=== PATIENT | male | born 1990 | race Caucasian/White ===

== ENCOUNTER 2021-07-03 10:42 | Outpatient (REF) | payer OTHER, SELFPAY | END 2021-07-03 10:43 | disposition home or self-care (01) | LOC: HO.LAB 10:42 | PROVIDERS: PCP Internal Medicine; Visit Provider Internal Medicine | DX: Z20.822 Contact with and (suspected) exposure to COVID-19 (principal) | CPT/HCPCS: C9803; U0003; U0005 ==

== ENCOUNTER → 2023-04-10 10:35 | Outpatient (BNVA) | payer OTHER, SELFPAY | PROVIDERS: PCP Internal Medicine; Visit Provider Physician Assistant | DX: S92.355A Nondisplaced fracture of fifth metatarsal bone, left foot, initial encounter for closed fracture (principal); W20.8XXA Other cause of strike by thrown, projected or falling object, initial encounter | CPT/HCPCS: 99203 ==

== ENCOUNTER → 2023-04-17 13:12 | Outpatient (BNVA) | payer OTHER, SELFPAY | PROVIDERS: PCP Internal Medicine; Visit Provider Internal Medicine | DX: S92.355A Nondisplaced fracture of fifth metatarsal bone, left foot, initial encounter for closed fracture (principal); W20.8XXA Other cause of strike by thrown, projected or falling object, initial encounter | CPT/HCPCS: 99213 ==

== ENCOUNTER 2023-04-21 15:02 | Outpatient (AMB) | payer OTHER, SELFPAY ==
--- NOTE | 2023-04-21 15:06 | MHC.OFFVIS ---
Intake Vital Signs 04/21/23 15:11 Height 6 ft 2 in Weight 220 lb BMI 28.2 Intake Visit Reasons: fc- Fracture base of Left 5th metatarsal. Allergies No Known Allergies Allergy (Unverified 04/21/23 15:11) Medication List - Last Reconciled 04/21/23 by Jania Rivera PA-C No Known Home Meds HPI fc- Fracture base of Left 5th metatarsal. 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 He was seen at [facility] where he was placed in a post op shoe which provided him mild relief. He states he has pain in his left small toe and reports being currently out of work due to the pain. He was referred to our office for ortho eval. Review of Systems Const All systems reviewed & are unremarkable except as noted in HPI and below Physical Exam Vital Signs: BMI result Body Mass Index 28.2 Extrem Other: Left foot: Skin intact. There is some bruising of the lateral edge of the left foot. There is tenderness at the base of the 5th metatarsal. Sensation intact. EHL intact. No pain along the mediolateral malleolus. Neurovascularly intact. Office Procedures Fracture Care Fracture Billing Code: Fracture Billing Code Results Reviewed Results Reviewed: xrays of the left foot obtained at an outside facility show mildly displaced fracture at the base of the 5th metatarsal Assessment & Plan Assessment & Plan (1) Fracture of fifth metatarsal bone of left foot: Code(s): S92.352A - Displaced fracture of fifth metatarsal bone, left foot, initial encounter for closed fracture Plan He was given an off the shelf short boot weight bearing as tolerated. He can wear this with ambulation. He can remove the brace for hygiene and resting. I did explain that this could take up to 6-8 weeks for full recovery but he may continue to have some discomfort. Given the nature of the fracture and that he is weight bearing, he may benefit from physical therapy in the future. He will continue to remain out of work and I would like to see him back in 6 weeks with new x-rays, sooner if needed. Patient Instructions: Scribed for Jania Rivera PA-C, by Michael Johnston medical services coordinator, on 04/21/2023 at 3:15 PM Jania SEWELL PA-C, have personally reviewed and agree with the information entered by the scribe. Coding Level of Care Code New Pt Level 3 (17686) Diagnoses Fracture of fifth metatarsal bone of left foot S92.352A CPT Codes Fracture Care - Fracture Billing Code: Fracture Billing Code ([id number])
[2023-04-21 15:11] VITALS: BMI 28.2
== END 2023-04-21 16:27 | disposition home or self-care (01) ==
PROVIDERS: PCP Internal Medicine; Visit Provider Physician Assistant
DX: S92.352A Displaced fracture of fifth metatarsal bone, left foot, initial encounter for closed fracture (principal)
CPT/HCPCS: 99203

== ENCOUNTER → 2023-04-21 15:02 | Outpatient (BNVA) | payer OTHER, SELFPAY | PROVIDERS: PCP Internal Medicine; Visit Provider Physician Assistant | DX: S92.352A Displaced fracture of fifth metatarsal bone, left foot, initial encounter for closed fracture (principal) | CPT/HCPCS: 99202 ==

== ENCOUNTER 2023-06-05 12:52 | Outpatient (AMB) | payer OTHER, SELFPAY ==
--- NOTE | 2023-06-05 12:57 | A.OFFVIS_ITS ---
Intake Vital Signs 06/05/23 13:07 Height 6 ft 2 in Weight 220 lb BMI 28.2 Intake Visit Reasons: ov-Fracture base of Left 5th metatarsal. Intake Note: Allan villatoro 32 year old male presents today for a follow up of left 5th metatarsal fracture s/p work injury, DOI 04/10/23. Patient reports he is doing well. He feels an electrical shock with applying weight when boot is off. Allergies No Known Allergies Allergy (Unverified 06/05/23 13:07) HPI ov-Fracture base of Left 5th metatarsal. HPI Details 32-year-old male who returns to the [facility] today for a follow-up of left 5th metatarsal fracture s/p work injury, 04/10/23. He states he has an ?electrical shock? sensation with applying weight when not wearing the boot. He is doing well otherwise and has no concerns today. Review of Systems Const All systems reviewed & are unremarkable except as noted in HPI and below Physical Exam Vital Signs: BMI result Body Mass Index 28.2 Extrem Other: Left foot: Skin intact. There is mild tenderness at the base of the 5th metatarsal. Sensation intact. EHL intact. No pain along the mediolateral malleolus. Neurovascularly intact. Results Reviewed Results Reviewed: xrays of the left foot obtained at an outside facility show mildly displaced fracture at the base of the 5th metatarsal Assessment & Plan Assessment & Plan (1) Fracture of fifth metatarsal bone of left foot: Code(s): S92.352A - Displaced fracture of fifth metatarsal bone, left foot, initial encounter for closed fracture Qualifiers: Encounter type: subsequent encounter Fracture type: closed Fracture alignment: displaced Fracture healing: with routine healing Qualified Code(s): S92.352D - Displaced fracture of fifth metatarsal bone, left foot, subsequent encounter for fracture with routine healing Plan He is going to begin a course of physical therapy to work on ROM and gentle strengthening. He will transition out of the boot into a regular street shoe as tolerated and increase activity as tolerated. I would like to see him back in 6 weeks with new x-rays, sooner if needed. Orders: Orders PT Evaluation and Treatment Today S92.352A - Displaced fracture of fifth metatarsal bone, left foot, initial encounter for closed fracture XR foot LT min 3V Today M79.672 - Pain in left foot Patient Instructions: Scribed for Ta-Rosa Meuse, PA-C, by Michael Johnston medical lab scientist, on 06/05/2023 at 12:45 PM ELVIRA. Jania Pham PA-C, have personally reviewed and agree with the information entered by the scribe. Coding Level of Care Code Global (12793) Diagnoses Closed displaced fracture of fifth metatarsal bone of left foot with routine healing, subsequent encounter S92.352D Encounter type: subsequent encounter Fracture type: closed Fracture alignment: displaced Fracture healing: with routine healing
[2023-06-05 13:07] VITALS: BMI 28.2
== END 2023-06-05 13:19 | disposition home or self-care (01) ==
PROVIDERS: PCP Internal Medicine; Visit Provider Physician Assistant
DX: S92.352D Displaced fracture of fifth metatarsal bone, left foot, subsequent encounter for fracture with routine healing (principal); W20.8XXD Other cause of strike by thrown, projected or falling object, subsequent encounter; Y99.0 Civilian activity done for income or pay
CPT/HCPCS: 99213

== ENCOUNTER 2023-06-05 16:35 | Outpatient (REF) | payer OTHER, SELFPAY ==
--- NOTE | ~2023-06-05 | XR_ITS ---
EXAMINATION: XR FOOT, LEFT CLINICAL INFORMATION: Pain in left foot COMPARISON: 04/10/2023 TECHNIQUE: AP, lateral, and oblique views of the left foot. FINDINGS: Redemonstration of transverse mildly displaced fracture at the base of the fifth metatarsal. There is increased widening/distraction along the lateral aspect of the fracture. Joint spaces and alignment are preserved. XR/XR foot LT min 3V IMPRESSION: Transverse, mildly comminuted fracture at the base of the fifth metatarsal. There is increased widening/distraction along the lateral aspect of the fracture.
== END 2023-06-05 16:36 | disposition home or self-care (01) ==
LOC: HO.HOSX 16:35
PROVIDERS: Visit Provider Physician Assistant
DX: S92.352D Displaced fracture of fifth metatarsal bone, left foot, subsequent encounter for fracture with routine healing (principal); M79.672 Pain in left foot; X58.XXXD Exposure to other specified factors, subsequent encounter
CPT/HCPCS: 73630; 99212

== ENCOUNTER 2023-07-16 09:46 | Outpatient (AMB) | payer OTHER, SELFPAY ==
[2023-07-16 09:50] VITALS: BMI 28.2
--- NOTE | 2023-07-16 09:50 | A.OFFVIS_ITS ---
Intake Vital Signs 07/16/23 09:50 Height 6 ft 2 in Weight 220 lb BMI 28.2 Intake Visit Reasons: OV-left metatarsal fx w xays Intake Note: Allan a 32 year old male presents today for a follow up of left 5th metatarsal fracture s/p work injury, DOI 04/10/23. Xrays updated in office. Patient reports he was not able to attend PT. He continues to wear walking boot. He has mild pain with. Allergies No Known Allergies Allergy (Unverified 07/16/23 09:57) HPI OV-left metatarsal fx w xays HPI Details 32-year-old male who returns to the [facility] today for a follow-up of lef t 5th metatarsal fracture s/p work injury, 04/10/23. He states he has mild pain in his foot with ambulation. He was unable to attend physical therapy however he continues to wear his walking boot. [facility] (Updated 07/16/23 @ 09:58 by VISHAL Escamilla) Patient Tobacco Use Status: Never used Tobacco Current occupational status: employed Current occupation: [employer] Review of Systems Const All systems reviewed & are unremarkable except as noted in HPI and below Physical Exam Vital Signs: BMI result Body Mass Index 28.2 Extrem Other: Left foot: Normal to inspection. He has very minimal tenderness at the base of 5th metatarsal. No pain along the Achilles tendon or surrounding structures. He has good ROM, no instability. NVI. Results Reviewed Results Reviewed: Xrays were obtained in the office today and personally reviewed by me of the left foot show fracture at the base of the 5th metatarsal with routine healing. Assessment & Plan Assessment & Plan (1) Fracture of fifth metatarsal bone of left foot: Code(s): S92.352A - Displaced fracture of fifth metatarsal bone, left foot, initial encounter for closed fracture Qualifiers: Encounter type: subsequent encounter Fracture alignment: displaced Fracture healing: with routine healing Fracture type: closed Qualified Code(s): S92.352D - Displaced fracture of fifth metatarsal bone, left foot, subsequent encounter for fracture with routine healing Plan We had a lengthy disc about the bene of physical therapy. 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 I encouraged him to discontinue the use of boot and progress to normal street shoe and he can increase activity as tolerated including returning to work on August 11. I did explain that with increasing activities he may have periods of increased pain and swelling which is normal if it lasts for a few hours and is better with rest and anti-inflammatories. Anything that is worsening or limiting his activities significantly, he should contact the office, otherwise he will follow-up as needed. Orders: Orders XR foot LT min 3V Today M79.672 - Pain in left foot Patient Instructions: Scribed for Jania Rivera PA-C, by Michael Johnston claim review medical director, on 07/16/2023 at 9:45 AM Jania SEWELL PA-C, have personally reviewed and agree with the information entered by the scribe. Coding Level of Care Code Est Pt Level 3 (94988) Diagnoses Closed displaced fracture of fifth metatarsal bone of left foot with routine healing, subsequent encounter S92.352D Encounter type: subsequent encounter Fracture alignment: displaced Fracture healing: with routine healing Fracture type: closed
== END 2023-07-16 10:12 | disposition home or self-care (01) ==
PROVIDERS: PCP Internal Medicine; Visit Provider Physician Assistant
DX: S92.352D Displaced fracture of fifth metatarsal bone, left foot, subsequent encounter for fracture with routine healing (principal)
CPT/HCPCS: 99213

== ENCOUNTER 2023-07-16 15:05 | Outpatient (REF) | payer OTHER, SELFPAY ==
--- NOTE | ~2023-07-16 | XR_ITS ---
EXAMINATION: XR FOOT, LEFT CLINICAL INFORMATION: Pain COMPARISON: Left foot radiograph from 06/05/2023 TECHNIQUE: AP, lateral, and oblique views of the left foot. FINDINGS: Redemonstration of mildly displaced comminuted transverse fracture involving the base of the fifth metatarsal with similar alignment and widening along its lateral margin. Multi joint arthritic changes. Slight pes planus. Spurring the dorsal midfoot. Joint spaces and alignment are maintained. Soft tissues are unremarkable. XR/XR foot LT min 3V IMPRESSION: 1. Redemonstration of mildly displaced comminuted transverse fracture involving the base of the fifth metatarsal with similar alignment and widening along its lateral margin. 2. Multi joint arthritic changes. 3. Slight pes planus.
== END 2023-07-16 15:06 | disposition home or self-care (01) ==
LOC: HO.HOSX 15:05
PROVIDERS: Visit Provider Physician Assistant
DX: S92.352D Displaced fracture of fifth metatarsal bone, left foot, subsequent encounter for fracture with routine healing (principal)
CPT/HCPCS: 73630; 99212

== ENCOUNTER 2023-08-26 10:00 | Outpatient (RCR) | payer OTHER, SELFPAY ==
--- NOTE | 2023-07-25 16:25 | MHC.PT.EP ---
[place] [facility] [place] [facility] [place] [facility] [address] Lizbeth Bobby [address] [phone] F: [phone] F: [phone] F: [phone] F: [phone] Physical Therapy Plan of Care Date of Evaluation: 07/25/23 Date of Surgery: Diagnosis: Displaced Fx of 5th metatarsal bone L foot. 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 Reports he recently had a f/u with ortho and was relieved of his walking boot on the 16 of July stating his current condition results in decreased tolerance for standing and ambulating for duration, descending stairs, performing brisk and fitness activities, as well as performing heavy HH chores secondary to decreased L ankle ROM and Strength, painful end range L ankle ROM, decreased standing balance, TTP of L 5th met, fracture healing process with associated swelling and pain. Pt is deemed an appropriate candidate to receive skilled PT services to address their physical impairments in order to improve their functional ability. Frequency and Duration: The patient will be seen 2 x/ wk x 6 wks. Short Term Goals: Initiate home program. Improve baseline pain with activity to < 3/10; initial: 5/10. Senior Care Goals: I with HEP. Pt will improve LEFI outcome measure by at least 10 points; initial: 36/80 Pt will negotiate 1 fl of stairs with reciprocal fashion and without difficulty; initial: a little difficulty and non reciprocal descending. Improve L foot EV MMT by at least 1/2 MMT; initial: 4-/5 limited by pain. Treatment Plan: Modalities to reduce pain, spasms and effusion. Manual therapy to restore motion and function. Therapeutic exercise to improve strength and flexibility. Neuromuscular re-education for posture and balance. Therapeutic activities to return to functional activities of daily living. Electronically signed by: Tom Padilla PT. Please sign and return to therapist. Thank you for your referral.
--- NOTE | 2023-09-01 07:18 | MHC.PT.DC ---
[facility] [place] [facility] [place] [facility] [place] [facility] [address] Lizbeth Bobby [address] [phone] F: [phone] F: [phone] F: [phone] F: [phone] Physical Therapy Discharge Report Diagnosis: Displaced Fx of 5th metatarsal bone L foot. Date of Surgery: Date of Evaluation: 07/25/23 Date of Discharge: 09/01/23 Treatments to Date: 5 Cancellations to Date: 5 No Shows to Date: Discharge Status: Achieved Goals Improved Function Independent with HEP Discharge Summary: Pt reports minimal discomfort with functional activities, he is I with his basic home program, is improved of his function, and in agreement with DC at this time. Electronically signed by: Tom Padilla PT. Please sign and return to therapist. Thank you for your referral.
== END 2023-09-01 07:18 | disposition home or self-care (01) ==
LOC: HO.PT 10:00
PROVIDERS: PCP Internal Medicine; Visit Provider Physician Assistant
DX: S92.352D Displaced fracture of fifth metatarsal bone, left foot, subsequent encounter for fracture with routine healing (principal)
CPT/HCPCS: 97110; 97112; 97161; 97530